=== PATIENT | male | born 1970 | race Caucasian/White ===

== ENCOUNTER 2016-12-11 10:59 | Emergency (ER) | payer BC ==
--- NOTE | 2016-12-11 11:29 | UC ---
Complaint Male HPI - HPI Summary HPI Summary: 46 yo male states he freaked out when his girlfriend told him she has some pelvic pain She is scheduled for an appt In the past she has been diagnosed with trich and chlamydia and he has been treated empirically for both in the past few months no dysuria no urethral d/c - History of Current Complaint Chief Complaint: UCGU Stated Complaint: PERSONAL Time Seen by Provider: 12/11/16 11:20 Hx Obtained From: Patient Severity Currently: None Pain Intensity: 0 Location: None Associated Signs And Symptoms: Positive: Negative - Allergies/Home Medications Allergies/Adverse Reactions: Allergies Allergy/AdvReac Type Severity Reaction Status Date / Time Oxycodone [From Percocet] AdvReac Intermediate Nausea And Verified 11/17/16 11: 56 Vomiting clams AdvReac Nausea And Uncoded 12/11/16 11:10 Vomiting PMH/Surg Hx/FS Hx/Imm Hx Previously Healthy: Yes Other Cancer History: testicle - Surgical History Surgical History: Yes Surgery Procedure, Year, and Place: 2011 L testicle removed, tonsilectomy - Family History Known Family History: Negative: Diabetes - Social History Alcohol Use: Daily Alcohol Amount: 2-3 beers/day Substance Use Type: Marijuana Substance Use Comment - Amount & Last Used: OCCASIONAL Smoking Status (MU): Heavy Every Day Tobacco Smoker Type: Cigarettes Amount Used/How Often: 1 ppd Length of Time of Smoking/Using Tobacco: ~ 20 years Have You Smoked in the Last Year: Yes - Immunization History Most Recent Influenza Vaccination: NONE Most Recent Tetanus Shot: UTD Most Recent Pneumonia Vaccination: NONE Review of Systems Constitutional: Negative Skin: Negative Eyes: Negative ENT: Negative Respiratory: Negative Cardiovascular: Negative Gastrointestinal: Negative Genitourinary: Negative Motor: Negative Neurovascular: Negative Musculoskeletal: Negative Neurological: Negative Psychological: Negative All Other Systems Reviewed And Are Negative: Yes Physical Exam Triage Information Reviewed: Yes Appearance: Well-Appearing, No Pain Distress, Ill-Appearing Vital Signs: Initial Vital Signs Temp 98.9 F 12/11/16 11:01 Pulse 65 12/11/16 11:01 Resp 16 12/11/16 11:01 BP 118/63 12/11/16 11:01 Pulse Ox 100 12/11/16 11:01 Vital Signs Reviewed: Yes Eyes: Positive: Conjunctiva Clear ENT: Positive: Hearing grossly normal. Negative: Nasal congestion, Nasal drainage, Trismus, Muffled/hoarse voice Neck: Positive: Supple, Nontender Respiratory: Positive: Lungs clear, Normal breath sounds, No respiratory distress Cardiovascular: Positive: RRR Abdomen Description: Positive: Nontender, Soft, Other: - absent left testicle, no penile d/c or lesions. Negative: CVA Tenderness (R), CVA Tenderness (L) Bowel Sounds: Positive: Present Neurological: Positive: Alert Psychological Exam: Normal Skin Exam: Normal Complaint Male Course/Dx - Course Course Of Treatment: requests tests for gc/chlamydia/trich - Differential Dx/Diagnosis Provider Diagnoses: patient request for STD testing Discharge - Discharge Plan Condition: Stable Disposition: HOME Referrals: Ernestine Rudd MD [Primary Care Provider] - If Needed Additional Instructions: tests are pending for chlamydia/gonorrhea and trichimonas
[2016-12-11 11:38] VITALS: BP 118/63
[2016-12-12 22:36] LABS: Trichomonas vaginalis SOURCE: Urine (Male Patient)
== END 2016-12-11 11:44 | disposition home or self-care (01) ==
LOC: UCCORT 10:59
DX: Z11.3 Encounter for screening for infections with a predominantly sexual mode of transmission (principal); Z85.47 Personal history of malignant neoplasm of testis; Z88.5 Allergy status to narcotic agent; F12.90 Cannabis use, unspecified, uncomplicated; F17.210 Nicotine dependence, cigarettes, uncomplicated
CPT/HCPCS: 87491; 87591; 87661; 99211; G0463

== ENCOUNTER 2018-06-20 09:26 | Emergency (ER) | payer BC, OTHER ==
[2018-06-20 09:39] VITALS: BP 121/73
--- NOTE | 2018-06-20 09:54 | ED ---
Dizziness - HPI Summary HPI Summary: 47 yr old male with the complaint of near syncope times two. Onset of symptoms Wednesday evening, and then again on Wednesday. 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 Each time he experienced feeling like he would pass out, experienced intense tightness across his epigastric area rating it severe, and tingling in both arms at the same time. No radiation of the tightness beyond his epigastric area. He had associated tunnel vision each time. He kneeled down and after about three minutes his symptoms passed each time. He denies nausea, sweating. Denies palpitations. He states his mother's family has history of CAD. He states he had his last stress test 5 years ago and was told that he has anxiety. He has felt fine today. - History Of Current Complaint Chief Complaint: UCChestPain Stated Complaint: HEART CONCERN Time Seen by Provider: 06/20/18 09:41 - Allergies/Home Medications Allergies/Adverse Reactions: Allergies Allergy/AdvReac Type Severity Reaction Status Date / Time MS Oxycodone [From Percocet] AdvReac Intermediate Nausea And Verified 06/20/18 09:28 Vomiting clams AdvReac Nausea And Uncoded 06/20/18 09:28 Vomiting Home Medications: Home Medications Canibis Oil 06/20/18 [History] PMH/Surg Hx/FS Hx/Imm Hx Endocrine/Hematology History: Denies: Hx Diabetes, Hx Systemic Lupus Erythematosus Cardiovascular History: Denies: Hx Angina, Hx Congestive Heart Failure, Hx Coronary Artery Disease, Hx Hypercholesterolemia, Hx Hypertension, Hx Myocardial Infarction, Hx Valvular Heart Disease GI History: Reports: Hx Gastroesophageal Reflux Disease, Other GI Disorders - c- diff History: Denies: Hx Renal Disease Musculoskeletal History: Denies: Hx Rheumatoid Arthritis Sensory History: Reports: Hx Contacts or Glasses Opthamlomology History: Reports: Hx Contacts or Glasses Psychiatric History: Reports: Hx Anxiety, Hx Depression - Cancer History Cancer Type, 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: TESTICULAR CANCLE Hx Chemotherapy: No - Surgical History Surgery Procedure, Year, and Place: 2011 L testicle removed, tonsilectomy - Immunization History Date of Tetanus Vaccine: Unknown Infectious Disease History: Yes Infectious Disease History: Reports: Hx Clostridium Difficile Denies: Hx Hepatitis, Hx Human Immunodeficiency Virus (HIV), Hx of Known/ Suspected MRSA, Hx Shingles, Hx Tuberculosis, Hx Known/Suspected VRE, Hx Known/ Suspected VRSA, History Other Infectious Disease, Traveled Outside the [place] in Last 30 Days - Family History Known Family History: Positive: Cardiac Disease Negative: Diabetes - Social History Occupation: Works From/At Home Alcohol Use: Daily Alcohol Amount: 2-3 beers/day Substance Use Type: Reports: Marijuana Substance Use Comment - Amount & Last Used: OCCASIONAL Smoking Status (MU): Former Smoker Type: Cigarettes Amount Used/How Often: 1 ppd Length of Time of Smoking/Using Tobacco: ~ 20 years Have You Smoked in the Last Year: Yes Review of Systems Constitutional: Negative Positive: Chest Pain Positive: Abdominal Pain All Other Systems Reviewed And Are Negative: Yes Physical Exam Triage Information Reviewed: Yes Vital Signs On Initial Exam: Initial Vitals Temp Pulse Resp BP Pulse Ox 99.1 F 73 18 121/73 99 06/20/18 09:29 12 09:29 12 09:29 06/20/18 09:29 06/20/18 09:29 Vital Signs Reviewed: Yes Appearance: Positive: Well-Appearing, No Pain Distress Skin: Positive: Warm, Skin Color Reflects Adequate Perfusion Head/Face: Positive: Normal Head/Face Inspection Eyes: Positive: EOMI ENT: Positive: Pharynx normal. Negative: Nasal congestion, Nasal drainage Neck: Positive: Supple, Nontender Respiratory/Lung Sounds: Positive: Clear to Auscultation, Breath Sounds Present Cardiovascular: Positive: RRR. Negative: Murmur Abdomen Description: Positive: Nontender. Negative: Distended Musculoskeletal: Positive: Strength/ROM Intact. Negative: Edema Left, Edema Right Neurological: Positive: Sensory/Motor Intact, Alert, Oriented to Person Place, Time, CN Intact II-III, Normal Gait, Speech Normal Psychiatric: Positive: Normal - [place] Coma Scale Best Eye Response: 4 - Spontaneous Best Motor Response: 6 - Obeys Commands Best Verbal Response: 5 - Oriented Coma Scale Total: 15 Diagnostics - Vital Signs Vital Signs Temp Pulse Resp BP Pulse Ox 06/20/18 09:29 99.1 F 73 18 121/73 99 - Laboratory Lab Statement: Any lab studies that have been ordered have been reviewed, and results considered in the medical decision making process. - EKG 06/20/18 Cardiac Rate: NL EKG Rhythm: Sinus Rhythm ST Segment: Normal Ectopy: None Summary of EKG Findings: interventricular conduction delay QRS 113 Dizzy Course/Dx - Course Course Of Treatment: 47 yr old male with near syncope and epigastric pain times two. He is signing out AMA and refusing to go to hospital by ambulance. - Diagnoses Provider Diagnoses: Near syncope, Epigastric pain Discharge - Sign-Out/Discharge Documenting (check all that apply): Patient Departure All imaging exams completed and their final reports reviewed: No Studies - Discharge Plan Condition: Good Disposition: HOME Patient Education Materials: Near Syncope (ED), Epigastric Pain (ED) Referrals: Ernestine Rudd MD [Primary Care Provider] - - Billing Disposition and Condition Condition: GOOD Disposition: Home
== END 2018-06-20 09:56 | disposition home or self-care (01) ==
LOC: UCCORT 09:26
DX: R55 Syncope and collapse (principal); R10.13 Epigastric pain; Z82.49 Family history of ischemic heart disease and other diseases of the circulatory system; Z88.5 Allergy status to narcotic agent; Z87.891 Personal history of nicotine dependence
CPT/HCPCS: 93005; 99212; G0463